=== PATIENT | female | born 1975 | race Caucasian/White ===

== ENCOUNTER 2021-09-17 15:30 | Inpatient (IN) | payer MEDICAID, OTHER ==
[2021-09-16 21:45] VITALS: BP 93/52
[~2021-09-17] VITALS: Ht 162.6 cm; Wt 68.0 kg
[~2021-09-17 15:30] MED LIST: METF-416 PO; PRAV10TA35 PO; SYRI-1345 MC
[2021-09-17] MEDS ORDERED: MORPHINE SULFATE 4 MG/ML CPJ (NOT FOR IM USE) IV STA (16:03)
[2021-09-17] MEDS ORDERED: ONDANSETRON HCL 4MG/2ML INJ IV STA (16:03)
[2021-09-17] MEDS ORDERED: SODIUM CHLORIDE 0.9% 1,000 ML IV ONE ×2 (16:15→18:00)
[2021-09-17] MEDS ORDERED: INSULIN REGULAR (HUMULIN R) UD 100 UNITS/ML SYR SUBCUT ONE ×2 (16:15→18:00)
[2021-09-17 16:40] LABS: HEMATOCRIT. 42.3 % (36.0-48.0); HEMOGLOBIN. 12.9 g/dL (12.0-16.0); MEAN CORPUSCULAR HEMOGLOBIN 23.2 pg (28.0-32.0); MEAN CORPUSCULAR VOLUME 75.7 fL (81.0-99.0); PLATELET 352 x1000/uL (130-400); RED BLOOD CELL COUNT 5.59 mill/uL (4.2-5.4); RED CELL DISTRIBUTION WIDTH 17.3 % (11.6-14.6)
[2021-09-17 16:45] LABS: CHLORIDE 101 mEq/L (98-107)
[2021-09-17 16:46] LABS: PLATELET ESTIMATE NORMAL
[2021-09-17 16:53] LABS: BETA HYDROXYBUTYRATE 4.3 mMol/L (0.0-0.3)
[2021-09-17 17:15] LABS: HCG SCREEN NEGATIVE
[2021-09-17 17:45] LABS: CLARITY URINE CLEAR (CLEAR); COLOR URINE YELLOW (YELLOW); KETONES URINE 2+ (NEGATIVE); LEUKOCYTE ESTERASE URINE NEGATIVE (NEGATIVE); NITRITE URINE NEGATIVE (NEGATIVE); OCCULT BLOOD URINE NEGATIVE (NEGATIVE); PROTEIN URINE TRACE (NEGATIVE); SPECIFIC GRAVITY URINE 1.029 (1.005-1.030); UROBILINOGEN URINE 0.2 E.U./dL (0.2-1.0)
[2021-09-17] MEDS ORDERED: INSULIN REGULAR (HUMULIN R) 300UNITS/3ML VIAL SUBCUT NR (17:53)
[2021-09-17] MEDS ORDERED: ONDANSETRON HCL 4MG/2ML INJ IV PRN (21:00)
[2021-09-18] VITALS: BP 104/67
[2021-09-18] MEDS ORDERED: DEXTROSE 50% WATER 50ML SYRINGE IV PRN
[2021-09-18] MEDS ORDERED: HYDROCODONE/ACETAMINOPHEN 10/325MG TABLET PO PRN
[2021-09-18] MEDS ORDERED: NALOXONE HCL 0.4MG/ML VIAL IV PRN (00:15)
[2021-09-18] MEDS: SODIUM CHLORIDE 0.9% 1,000 ML IV SCH ×2 (00:54→08:34)
[2021-09-18 01:30] LABS: CHLORIDE 109 mEq/L (98-107)
[2021-09-18 01:37] LABS: PHOSPHORUS 3.3 mg/dL (2.5-4.9)
[2021-09-18 04:00] VITALS: BP 98/62
[2021-09-18 06:39] LABS: CHLORIDE 111 mEq/L (98-107)
[2021-09-18 06:46] LABS: LDL CHOLESTEROL 122 mg/dL (5-100)
[2021-09-18 06:47] LABS: HDL CHOLESTEROL 47 mg/dL (40-59)
[2021-09-18 06:59] LABS: HEMATOCRIT. 33.8 % (36.0-48.0); HEMOGLOBIN. 10.6 g/dL (12.0-16.0); MEAN CORPUSCULAR HEMOGLOBIN 23.1 pg (28.0-32.0); MEAN CORPUSCULAR VOLUME 73.6 fL (81.0-99.0); MEAN PLATELET VOLUME 9.7 fl (7.4-10.4); PLATELET 312 x1000/uL (130-400); RED BLOOD CELL COUNT 4.59 mill/uL (4.2-5.4); RED CELL DISTRIBUTION WIDTH 17.4 % (11.6-14.6)
[2021-09-18] MEDS: BLOOD SUGAR DIAGNOSTIC STRIP TEST SCH ×2 (07:20→12:34)
[2021-09-18 08:00] VITALS: BP 105/63
[2021-09-18] MEDS: INSULIN LISPRO 100 UNITS/ML SUBCUT SCH ×2 (08:34→13:38)
[2021-09-18] MEDS ORDERED: FAMOTIDINE 20MG TABLET PO SCH (09:00)
[2021-09-18] MEDS ORDERED: INSULIN GLARGINE UD 100 UNITS/ML SYR SUBCUT SCH (10:00)
[2021-09-18 10:14] LABS: PLATELET ESTIMATE NORMAL
[2021-09-18 12:00] VITALS: BP 119/75
[2021-09-18 14:53] VITALS: BP 113/70
== END 2021-09-18 16:14 | disposition home or self-care (01) | DRG 720 ==
LOC: ER 15:30 → 6WST 19:40 → EDBEDREQTM 19:42 → EDBEDREQ 19:42 → ENRESERV 20:46
PROVIDERS: ADMIT Internal Medicine; ATTEND Internal Medicine
DX: A41.9 Sepsis, unspecified organism (principal); E11.65 Type 2 diabetes mellitus with hyperglycemia; K52.9 Noninfective gastroenteritis and colitis, unspecified; Z20.822 Contact with and (suspected) exposure to COVID-19; I10 Essential (primary) hypertension; Z98.891 History of uterine scar from previous surgery
CPT/HCPCS: 36415; 71045; 74176; 76705; 80048; 80053; 80061; 81003; 82010; 82962; 83036; 84100; 84703; 85025; 87426; 93005; 99285; J1815; J2270; J2405; J7030